=== PATIENT | female | born 1950 | race Caucasian/White ===

== ENCOUNTER 2017-04-20 08:53 | Day surgery (SDC) | payer MEDICARE, OTHER ==
[2017-04-17 09:32] VITALS: BMI 30.7
[~2017-04-20 08:53] MED LIST: LACTATED RINGERS 1,000 ML IV SCH; LIDOCAINE 1% 20 ML VIAL (10MG/ML) FOR IV START INTRADERMA PRN
[2017-04-20 09:16] VITALS: RESP 16; TEMP 97.9
[2017-04-20] MEDS ORDERED: LIDOCAINE 1% INJ 10MG/ML (20 ML MDV) ONE (09:28)
[2017-04-20] MEDS ORDERED: PROPOFOL 10 MG/ML 20 ML VIAL IV ONE (09:28)
--- NOTE | 2017-04-20 09:33 | P.GSHP ---
History of Present Illness H&P Date: 04/20/17 Chief Complaint: Colon cancer screening Patient here today for colonoscopy. Last colonoscopy was 11 years ago. That was normal at that time. No family history of colon cancer or polyps. No bowel related complaints. Past Medical History Past Medical History: Cancer, Hypertension, Osteoarthritis (OA) Additional Past Medical History / Comment(s): RIGHT LOWER LUNG LOBE REMOVED ( 2005 CANCER)., ARTHRITIS LEFT KNEE. History of Any Multi-Drug Resistant Organisms: None Reported Past Surgical History: Joint Replacement Additional Past Surgical History / Comment(s): TOTAL RIGHT HIP (1999), RIGHT LOWER LUNG LOBE (2005) , TOTAL RIGHT KNEE (2009) Past Anesthesia/Blood Transfusion Reactions: No Reported Reaction Past Psychological History: No Psychological Hx Reported Smoking Status: Never smoker Past Alcohol Use History: Rare Past Drug Use History: None Reported - Past Family History Father Family Medical History: Cancer Additional Family Medical History / Comment(s): LUNG CANCER Medications and Allergies Home Medications Medication Instructions Recorded Confirmed Type Atorvastatin [Lipitor] 10 mg PO DAILY 04/17/17 04/20/17 History Calcium Carbonate/Vitamin D3 1 each PO DAILY 04/17/17 04/20/17 History [Calcium 600-Vit D3 200 Tablet] Hydrochlorothiazide [Hydrodiuril] 12.5 mg PO DAILY 04/17/17 04/20/17 History Ibuprofen [Motrin] 200 - 400 mg PO Q6HR PRN 04/17/17 04/20/17 History Allergies Allergy/AdvReac Type Severity Reaction Status Date / Time nickel Allergy Unknown ALLERGY Verified 04/20/17 09:17 TEST POSITIVE Surgical - Exam Vital Signs Temp Pulse Resp BP Pulse Ox 97.9 F 95 16 167/82 96 04/20/17 09:15 04/20/17 09:15 04/20/17 09:15 04/20/17 09:15 04/20/17 09:15 Physical exam: General: Well-developed, well-nourished HEENT: Normocephalic, sclerae nonicteric Abdomen: Nontender, nondistended Extremities: No edema Neuro: Alert and oriented Assessment and Plan (1) Colon cancer screening Narrative/Plan: Will proceed with colonoscopy at this time Current Visit: Yes Status: Acute Code(s): Z12.11 - ENCOUNTER FOR SCREENING FOR MALIGNANT NEOPLASM OF COLON SNOMED Code(s): 093200662
--- NOTE | 2017-04-20 09:45 | P.PCN ---
Date of Procedure: 04/20/17 Procedure(s) Performed: PREOPERATIVE DIAGNOSIS: Colon cancer screening POSTOPERATIVE DIAGNOSIS: Normal exam PROCEDURE: Colonoscopy ANESTHESIA: MAC SURGEON: Jeramie Snow M.D. SPECIMENS: None ENDOSCOPIC PROCEDURE: The patient was placed on the endoscopy table in the left decubitus position. The Olympus colonoscope was inserted into the anus and passed under direct visualization to the base of the cecum. The appendiceal orifice was visualized. From that point the scope was slowly withdrawn inspecting all surfaces carefully. There were no neoplastic inflammatory or polypoid lesions throughout the cecum, ascending, transverse, descending, sigmoid and rectum. There was no diverticulosis noted. Digital rectal examination was normal. The patient was taken to the recovery room in stable condition per anesthesia guidelines. RECOMMENDATIONS: Increase fiber. Follow-up colonoscopy 10 years.
[2017-04-20 10:21] VITALS: BP 162/72; PULSE 75
== END 2017-04-20 10:26 | disposition home or self-care (01) ==
LOC: ORWHC2ENDO 08:53
PROVIDERS: ATTEND Surgery
DX: Z12.11 Encounter for screening for malignant neoplasm of colon (principal); I10 Essential (primary) hypertension; E78.5 Hyperlipidemia, unspecified; M19.90 Unspecified osteoarthritis, unspecified site; Z90.2 Acquired absence of lung [part of]; Z85.118 Personal history of other malignant neoplasm of bronchus and lung; Z79.899 Other long term (current) drug therapy; Z91.048 Other nonmedicinal substance allergy status
CPT/HCPCS: J2001; J2704; G0121

== ENCOUNTER → 2018-07-28 | Outpatient (CLI) | payer MEDICARE, OTHER ==
--- NOTE | 2018-07-30 09:00 | MM ---
Reason for exam: screening (asymptomatic). Last mammogram was performed 2 years and 4 months ago. History: Patient is postmenopausal and has history of other cancer at age 56. Family history of breast cancer in aunt at age 18. Benign excisional biopsy of the left breast. Physical Findings: A clinical breast exam by your physician is recommended on an annual basis and results should be correlated with mammographic findings. MG 3D Screening Mammo W/Cad Bilateral CC and MLO view(s) were taken. Prior study comparison: March 29, 2016, bilateral MG screening mammo w CAD. October 26, 2013, bilateral digital screening mammo w/CAD. There are scattered fibroglandular densities. There is chronic nodularity in the right breast. No significant changes when compared with prior studies. ASSESSMENT: Benign, BI-RAD 2 RECOMMENDATION: Routine screening mammogram of both breasts in 1 year.
== END | disposition home or self-care (01) ==
LOC: RADMAMWWP 11:38
PROVIDERS: ATTEND Internal Medicine
DX: Z12.31 Encounter for screening mammogram for malignant neoplasm of breast (principal)
CPT/HCPCS: 77063; 77067

== ENCOUNTER → 2019-11-22 | Outpatient (CLI) | payer MEDICARE, OTHER ==
[2019-11-22 10:54] LABS: HCT 44.8 % (34.0-46.0); HGB 14.7 gm/dL (11.4-16.0); MCH 29.2 pg (25.0-35.0); MCHC 32.9 g/dL (31.0-37.0); Mean Platelet Volume 6.8; Platelet Count 297 k/uL (150-450); RBC 5.03 m/uL (3.80-5.40); RDW 12.9 % (11.5-15.5); WBC 8.5 k/uL (3.8-10.6)
[2019-11-22 12:51] LABS: Erythrocyte Sedimentation Rate 15 mm/hr (0-20)
[2019-11-22 15:59] LABS: C Reactive Protein 0.8 mg/dL (0.0-0.8); Rheumatoid Factor, Qnt <4 IU/mL (0-15)
[2019-11-22 16:52] LABS: Streptolysin O Ab(ASO) <25 IU/mL (0-200)
[2019-11-23 11:20] LABS: HLA B27 NEGATIVE
== END | disposition home or self-care (01) ==
LOC: LABWHC1 10:03
PROVIDERS: ATTEND Orthopaedic Surgery
DX: M79.641 Pain in right hand (principal); M65.841 Other synovitis and tenosynovitis, right hand; I10 Essential (primary) hypertension; E78.5 Hyperlipidemia, unspecified; M79.644 Pain in right finger(s); M19.041 Primary osteoarthritis, right hand; Z85.9 Personal history of malignant neoplasm, unspecified
CPT/HCPCS: 36415; 84443; 85027; 85652; 86038; 86060; 86140; 86431; 86618; 86812

== ENCOUNTER → 2020-09-11 | Outpatient (CLI) | payer MEDICARE ==
--- NOTE | 2020-09-12 11:17 | MM ---
Reason for exam: screening (asymptomatic). Last mammogram was performed 2 years and 2 months ago. History: Patient is postmenopausal and has history of other cancer at age 56. Family history of breast cancer in aunt at age 18. Benign excisional biopsy of the left breast. Physical Findings: A clinical breast exam by your physician is recommended on an annual basis and results should be correlated with mammographic findings. MG 3D Screening Mammo W/Cad Bilateral CC and MLO view(s) were taken. Prior study comparison: July 28, 2018, bilateral MG 3d screening mammo w/cad. March 29, 2016, bilateral MG screening mammo w CAD. There are scattered fibroglandular densities. There is chronic nodularity in the right breast. No significant changes when compared with prior studies. ASSESSMENT: Benign, BI-RAD 2 RECOMMENDATION: Routine screening mammogram of both breasts in 1 year.
== END ==
LOC: RADMAMWWP 09:52
PROVIDERS: ATTEND Internal Medicine
DX: Z12.31 Encounter for screening mammogram for malignant neoplasm of breast (principal); Z78.0 Asymptomatic menopausal state
CPT/HCPCS: 77063; 77067

== ENCOUNTER → 2021-02-12 | Outpatient (CLI) | payer MEDICARE ==
--- NOTE | 2021-02-12 09:01 | US ---
EXAMINATION TYPE: US abdomen complete DATE OF EXAM: 02/12/2021 COMPARISON: NONE CLINICAL HISTORY: R10.11 RUQ pain. epigastric burning for 2 months EXAM MEASUREMENTS: Liver Length: 13.7 cm Gallbladder Wall: 0.3 cm CBD: 0.5 cm Spleen: 9.0 cm Right Kidney: 9.5 x 4.4 x 4.2 cm Left Kidney: 9.7 x 4.7 x 4.4 cm *technical limitations due to large amount of overlying bowel content Pancreas: Obscured by bowel gas Liver: only seen intercostally, appears wnl as visualized Gallbladder: limited evaluation, only visualized intercostally due to large amount of overlying kylie l Evidence for sonographic Strange's sign: no CBD: appears wnl Spleen: appears wnl Right Kidney: limited evaluation. cystic area upper pole = 3.1 x 2.9 x 3.3cm. dense echogenic focus lower pole = 0.5cm. ??possible vague isoechoic solid area mid/lower = 3.2 x 3.2 x 3.3cm Left Kidney: no evidence of hydronephrosis Upper IVC: wnl Abd Aorta: wnl The visualized liver slightly heterogeneous without focal mass or ductal dilatation. The intrahepati c portion of the IVC and visualized abdominal aorta true bifurcation are within normal limits. There is no evidence of shadowing mobile cholelithiasis. Common bile duct is unremarkable. Suboptimal dannielle luation of pancreas on initial images. The spleen is normal in size. Kidneys are symmetric and free of hydronephrosis. There is 3.1 cm thin-walled cyst upper pole level right kidney. IMPRESSION: Suboptimal study, no acute findings are identified on images saved.
== END | disposition home or self-care (01) ==
LOC: RADUSWWP 06:56
PROVIDERS: ATTEND Family Medicine
DX: R10.11 Right upper quadrant pain (principal)
CPT/HCPCS: 76700

== ENCOUNTER → 2021-05-08 | Outpatient (CLI) | payer MEDICARE ==
[2021-05-08 16:11] LABS: Chol/HDL Ratio 5.1 Ratio; HDL Cholesterol 30.2 mg/dL (40.00-60.00); LDL Cholesterol,Calculated 92.2 mg/dL (0.0-131.0); VLDL Calculation 31.6 mg/dL (5.00-40.00)
== END | disposition home or self-care (01) ==
LOC: LABWHC1 09:28
PROVIDERS: ATTEND Family Medicine
DX: E78.5 Hyperlipidemia, unspecified (principal)
CPT/HCPCS: 36415; 80061

== ENCOUNTER → 2021-09-12 | Outpatient (CLI) | payer MEDICARE ==
--- NOTE | 2021-09-17 12:50 | MM ---
Reason for exam: screening (asymptomatic). Last mammogram was performed 1 year ago. History: Patient is postmenopausal and has history of other cancer at age 56. Family history of breast cancer in aunt at age 18. Benign excisional biopsy of the left breast, 1979. Physical Findings: A clinical breast exam by your physician is recommended on an annual basis and results should be correlated with mammographic findings. MG 3D Screening Mammo W/Cad Bilateral CC and MLO view(s) were taken. Prior study comparison: September 11, 2020, bilateral MG 3d screening mammo w/cad. July 28, 2018, bilateral MG 3d screening mammo w/cad. There are scattered fibroglandular densities. There is chronic nodularity in the right breast, stable. There is no discrete abnormality. ASSESSMENT: Benign, BI-RAD 2 RECOMMENDATION: Routine screening mammogram of both breasts in 1 year.
== END | disposition home or self-care (01) ==
LOC: RADMAMWWP 10:32
PROVIDERS: ATTEND Family Medicine
DX: Z12.31 Encounter for screening mammogram for malignant neoplasm of breast (principal); Z78.0 Asymptomatic menopausal state; Z80.3 Family history of malignant neoplasm of breast
CPT/HCPCS: 77063; 77067

== ENCOUNTER → 2022-09-15 | Outpatient (CLI) | payer MEDICARE ==
--- NOTE | 2022-09-16 16:50 | MM ---
Reason for Exam: Screening (asymptomatic). Last screening mammogram was performed 12 month(s) ago. Patient History: Menarche at age 15. First Full-Term at age 19. Postmenopausal. Other cancer, age 56. 1980, Benign Excisional Biopsy on the left side. Maternal aunt had breast cancer, age 18. Risk Values: Madie 5 year model risk: 1.7%. NCI Lifetime model risk: 4.2%. Prior Study Comparison: 07/28/2018 Bilateral Screening Mammogram, [facility]. 09/11/2020 Bilateral Screening Mammogram, [facility]. 09/12/2021 Bilateral Screening Mammogram, [facility]. Tissue Density: There are scattered fibroglandular densities. Findings: Analyzed By CAD. Abdomen appears symmetrical and stable. No significant interval change. No suspicious groups of microcalcifications, spiculated or lobular masses, architectural distortion or other secondary signs of malignancy are mammographically apparent. Overall Assessment: Benign, BI-RAD 2 Management: Screening Mammogram of both breasts in 1 year. A negative mammogram report should not preclude additional follow up of suspicious palpable abnormalities. Patient should continue monthly self breast exam. A clinical breast exam by your physician is recommended on an annual basis and results should be correlated with mammographic findings. Electronically signed and approved by: Meliton Pascual D.O. Radiologis
== END | disposition home or self-care (01) ==
LOC: RADMAMWWP 10:12
PROVIDERS: ATTEND Family Medicine
DX: Z12.31 Encounter for screening mammogram for malignant neoplasm of breast (principal); Z78.0 Asymptomatic menopausal state; Z80.3 Family history of malignant neoplasm of breast; Z98.890 Other specified postprocedural states
CPT/HCPCS: 77063; 77067

== ENCOUNTER → 2022-12-10 | Outpatient (CLI) | payer MEDICARE ==
--- NOTE | 2022-12-10 15:55 | US ---
EXAMINATION TYPE: US carotid duplex BILAT DATE OF EXAM: 12/10/2022 COMPARISON: NONE CLINICAL INDICATION: Female, 72 years old with history of H93.19 Tinnitus; Tinnitus. TECHNIQUE: Carotid duplex ultrasound examination. Indirect Doppler criteria was utilized. FINDINGS: EXAM MEASUREMENTS: RIGHT: Peak Systolic Velocity (PSV) cm/sec ----- Right CCA: 82.6 ----- Right ICA: 70 ----- Right ECA: 141 ICA/CCA ratio: 0.84 RIGHT: End Diastole cm/sec ----- Right CCA: 1.05 ----- Right ICA: 18.8 ----- Right ECA: 0 LEFT: Peak Systolic Velocity (PSV) cm/sec ----- Left CCA: 122 ----- Left ICA: 120 ----- Left ECA: 129 ICA/CCA ratio: 1.0 LEFT: End Diastole cm/sec ----- Left CCA: 30.3 ----- Left ICA: 29.3 ----- Left ECA: 36.6 VERTEBRALS (direction of flow): Right Vertebral: Antegrade Left Vertebral: Antegrade Rhythm: Normal COLD TYPE COMPOSING MACHINE OPERATOR NOTES: No significant stenosis seen IMPRESSION: 1. Some narrowing of the left carotid bifurcation less than 50% stenosis based on velocities. Criteria for Assigning % of Stenosis / Diameter reduction (Estimation based on the indirect measurements of the internal carotid artery velocities (ICA PSV). 1. Normal (no stenosis)=ICA PSV < 125 cm/s: ratio < 2.0: ICA EDV<40 cm/s. 2. Less than 50% stenosis=ICA PSV < 125 cm/s: ratio < 2.0: ICA EDV<40 cm/s. 3. 50 to 69% stenosis=ICA PSV of 125 to 230 cm/s: ration 2.0 ? 4.0: ICA EDV 40-100 cm/s. 4. Greater than 70% stenosis to near occlusion= ICA PSV > 230 cm/s: ratio > 4.0: ICA EDV > 100 cm/s. 5. Near occlusion= ICA PSV velocities may be low or undetectable: variable ratio and ICA EDV. 6. Total occlusion=unable to detect flow.
== END | disposition home or self-care (01) ==
LOC: RADUSWWP 10:14
PROVIDERS: ATTEND Family Medicine
DX: I65.22 Occlusion and stenosis of left carotid artery (principal); H93.19 Tinnitus, unspecified ear
CPT/HCPCS: 93880

== ENCOUNTER → 2023-02-17 | Outpatient (CLI) | payer MEDICARE ==
--- NOTE | 2023-02-18 10:28 | CA ---
Transthoracic Echo Report Name: Mary Rubio Age: 72 Gender: F : 1950 Exam Date: 02/17/2023 13:43 Exam Location: [facility] Ht (in): 64 Wt (lb): 167 Ordering Physician: Pasquale Morley MD Attending/Referring Phys: Emiliano Ellison PAC Branch Controller Fide Durand RDCS Procedure CPT: Indications: R07.89 chest pain Cardiac Hx: Technical Quality: Fair Contrast 1: Total Dose (mL): Contrast 2: Total Dose (mL): MEASUREMENTS (Male / Female) Normal Values 2D ECHO LV Diastolic Diameter PLAX 2.8 cm 4.2 - 5.9 / 3.9 - 5.3 cm LV Systolic Diameter PLAX 1.4 cm IVS Diastolic Thickness 1.5 cm 0.6 - 1.0 / 0.6 - 0.9 cm LVPW Diastolic Thickness 1.3 cm 0.6 - 1.0 / 0.6 - 0.9 cm LV Relative Wall Thickness 1.0 RV Internal Dim ED PLAX 3.2 cm M-MODE Aortic Root Diameter MM 3.2 cm LA Systolic Diameter MM 4.3 cm LA Ao Ratio MM 1.3 AV Cusp Separation MM 2.3 cm DOPPLER AV Peak Velocity 153.3 cm/s AV Peak Gradient 9.4 mmHg AV Mean Velocity 106.9 cm/s AV Mean Gradient 5.0 mmHg AV Velocity Time Integral 30.6 cm AI Peak Velocity 367.1 cm/s AI Peak Gradient 53.9 mmHg AI Pressure Half Time 373.8 ms LVOT Peak Velocity 93.4 cm/s LVOT Peak Gradient 3.5 mmHg LVOT Velocity Time Integral 20.7 cm Mitral E Point Velocity 90.8 cm/s Mitral A Point Velocity 110.0 cm/s Mitral E to A Ratio 0.8 MV Deceleration Time 212.4 ms MV E' Velocity 6.9 cm/s Mitral E to MV E' Ratio 13.1 TR Peak Velocity 195.7 cm/s TR Peak Gradient 15.3 mmHg Right Ventricular Systolic Press 26.2 mmHg FINDINGS Left Ventricle Moderately increased left ventricular wall thickness. Normal left ventricular systolic function with no obvious regional wall motion abnormalities. Left ventricular cavity size normal. Left ventricular ejection fraction is estimated at 55-60 %. Right Ventricle Normal right ventricular size and function. Right ventricular systolic pressure within normal limits. Right Atrium Normal right atrial size. Left Atrium Normal left atrial size. Mitral Valve Structurally normal mitral valve. Mild mitral annular calcification. Mild mitral regurgitation. Aortic Valve No aortic stenosis. Mild aortic regurgitation. Aortic valve sclerosis. Tricuspid Valve Structurally normal tricuspid valve. Mild tricuspid regurgitation. Pulmonic Valve Structurally normal pulmonic valve. Trace pulmonic regurgitation. Pericardium No pericardial effusion. Aorta Normal size aortic root and proximal ascending aorta. CONCLUSIONS Left ventricular hypertrophy with preserved function Previewed by: Dr. Venkatesh Garrett MD (Electronically Signed) Final Date: 18 February 2023 10:27
== END | disposition home or self-care (01) ==
LOC: RADECHMAIN 13:32
PROVIDERS: ATTEND Family Medicine
DX: I08.3 Combined rheumatic disorders of mitral, aortic and tricuspid valves (principal); R07.89 Other chest pain
CPT/HCPCS: 93306

== ENCOUNTER → 2023-08-13 | Outpatient (CLI) | payer MEDICARE ==
--- NOTE | 2023-08-13 11:40 | US ---
EXAMINATION TYPE: US Aorta Screening DATE OF EXAM: 08/13/2023 COMPARISON: US 2020 CLINICAL INDICATION: Female, 73 years old with history of Z13.6 ENCOUNTER FOR SCREENING FOR CARDIOVAS CULAR D; TECHNIQUE: Multiple sonographic images of the abdominal aorta are obtained. FINDINGS: EXAM MEASUREMENTS: Abdominal Aorta: Proximal: obscured by overlying midline bowel gas Mid: 2.3 x 2.2cm Distal: 1.7 x 1.6cm Bifurcation: Right Iliac: 1.1 x 1.2cm Left Iliac: 1.1 x 0.9cm IMPRESSION: No evidence for aortic aneurysm.
== END | disposition home or self-care (01) ==
LOC: RADUSWWP 08:55
PROVIDERS: ATTEND Family Medicine
DX: Z13.6 Encounter for screening for cardiovascular disorders (principal)
CPT/HCPCS: 76706

== ENCOUNTER → 2023-09-03 | Outpatient (CLI) | payer MEDICARE ==
[~2023-09-03] MED LIST changes: -LACTATED RINGERS 1,000 ML IV SCH; -LIDOCAINE 1% 20 ML VIAL (10MG/ML) FOR IV START INTRADERMA PRN; +REGADENOSON 0.4 MG/5 ML SYRINGE IV PRN
--- NOTE | 2023-09-03 17:44 | CA ---
Lexiscan Nuclear Stress Test Report Name: Mary Rubio Exam Date: 09/03/2023 10:29 Exam Location: [facility] Stress Ht (in): 64 Wt (lb): 170 BSA: 1.83 Ordering Phys: Pasquale Morley MD Referring Phys: Emiliano Ellison Technologist: RONNIE GUPTA Age: 73 Gender: F : 1950 Procedure CPT: Indications: R07.89 chest pain ICD-10 Codes: Patient History: CP, TOSHA, HTN, CHOL Medications: ROSUVASTATIN,,,, IRBESARTAN,,, Meds past 24 hrs: Pretest Chest Pain: STRESS TEST Lexiscan Protocol Exercise Duration (min:sec): 01:[address] Depressions (mm): Angina Score: Casey Score: Resting HR (bpm): 71 Peak HR (bpm): 104 Resting BP (mmHg): 150 / 75 Peak BP (mmHg): 168 / 67 MPHR: 146 Target HR: 124 % MPHR: 71 METS: 1.0 Total Dose: Peak Dose: Atropine: Double Product: 77123 BP Response: Stress Termination: INFUSION COMPLETE Stress Symptoms: NO SYMPTOMS Stress Summary: ECG ANALYSIS Resting ECG: Normal sinus rhythm normal axis normal intervals Stress ECG: Patient was given intravenous Lexiscan as a protocol did not have chest pain or diagnostic ST segment depression CONCLUSIONS Negative stress test by EKG criteria Cardiolite portion of the stress test will be reported separately Dr. Alcides Sheikh MD (Electronically Signed) Final Date: 03 September 2023 17:43
--- NOTE | 2023-09-03 18:42 | NM ---
EXAMINATION TYPE: NM stress lexiscan cardiolite DATE OF EXAM: 09/03/2023 COMPARISON: NONE CLINICAL INDICATION: Female, 73 years old with history of R07.89 CHEST PAIN; TECHNIQUE: After the intravenous administration of 8.7 mCi Tc 99m Sestamibi - Cardiolite resting SPE CT images acquired 45 minutes post injection. The patient received 0.4mg Lexiscan, 24.7 mCi Tc 99m Sestamibi - Stress images obtained [address] injection FINDINGS: Review of stress and rest SPECT images demonstrates no distinct perfusion abnormality. Gated analysi s shows normal wall motion with an estimated left ventricular ejection fraction of 76 %. TID is calc ulated at 0.93, within normal limits. IMPRESSION: No scintigraphic evidence for reversible ischemia.
== END | disposition home or self-care (01) ==
LOC: RADNMMAIN 08:50
PROVIDERS: ATTEND Family Medicine
DX: R07.89 Other chest pain (principal); I10 Essential (primary) hypertension; E78.00 Pure hypercholesterolemia, unspecified
CPT/HCPCS: 93017; 78452; A9500; J2785

== ENCOUNTER → 2023-09-18 | Outpatient (CLI) | payer MEDICARE ==
--- NOTE | 2023-09-23 09:42 | MM ---
Reason for Exam: Screening (asymptomatic). Last screening mammogram was performed 12 month(s) ago. Patient History: Menarche at age 15. First Full-Term at age 19. Postmenopausal. Other cancer, age 56. 1980, Benign Excisional Biopsy on the left side. Maternal aunt had breast cancer, age 18. Risk Values: Madie 5 year model risk: 1.7%. NCI Lifetime model risk: 3.9%. Prior Study Comparison: 09/11/2020 Bilateral Screening Mammogram, [facility]. 09/12/2021 Bilateral Screening Mammogram, [facility]. 09/15/2022 Bilateral MG 3D screening mammo w/cad, [facility]. Tissue Density: There are scattered areas of fibroglandular density. Findings: Analyzed By CAD. There is no suspicious group of microcalcifications or new suspicious mass in either breast. Benign-appearing calcifications. A chronic nodularity right breast. Overall Assessment: Benign, BI-RAD 2 Management: Screening Mammogram of both breasts in 1 year. . Patient should continue monthly self-breast exams. A clinical breast exam by your physician is recommended on an annual basis. This exam should not preclude additional follow-up of suspicious palpable abnormalities. Note on Madie scores and lifetime risk: 1. A Madie score greater than 3% is considered moderate risk. If this is the case, consider specialist referral to assess eligibility for a risk reducing agent. 2. If overall lifetime risk for the development of breast cancer is 20% or higher, the patient may qualify for future screening with alternating mammogram and breast MRI. Electronically signed and approved by: Pasquale Cameron M.D. Radiologis
== END | disposition home or self-care (01) ==
LOC: RADMAMWWP 10:31
PROVIDERS: ATTEND Family Medicine
DX: Z12.31 Encounter for screening mammogram for malignant neoplasm of breast (principal); Z80.3 Family history of malignant neoplasm of breast; Z78.0 Asymptomatic menopausal state
CPT/HCPCS: 77063; 77067